=== PATIENT | female | born 2005 | race Caucasian/White ===

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

== ENCOUNTER 2023-02-09 20:00 | Emergency (ER) | payer OTHER ==
[~2023-02-09] VITALS: Ht 154.9 cm; Wt 57.1 kg
[~2023-02-09 20:00] MED LIST changes: +IRON18 MG PO
[2023-02-09 20:39] VITALS: BP 113/65
== END 2023-02-09 23:00 | disposition home or self-care (01) ==
LOC: ER 20:00
DX: S06.9X9A Unspecified intracranial injury with loss of consciousness of unspecified duration, initial encounter (principal); S13.9XXA Sprain of joints and ligaments of unspecified parts of neck, initial encounter; J45.909 Unspecified asthma, uncomplicated; D64.9 Anemia, unspecified; F17.290 Nicotine dependence, other tobacco product, uncomplicated; Z88.0 Allergy status to penicillin; Z88.2 Allergy status to sulfonamides; Z79.899 Other long term (current) drug therapy; W01.198A Fall on same level from slipping, tripping and stumbling with subsequent striking against other object, initial encounter
CPT/HCPCS: 70450; 72125; 99284-25

== ENCOUNTER 2023-02-24 21:50 | Emergency (ER) | payer OTHER ==
[~2023-02-24] VITALS: Ht 157.5 cm; Wt 57.1 kg
[2023-02-24 22:04] VITALS: BP 106/55
[2023-02-24 22:59] LABS: BASOPHILS ABSOLUTE AUTO 0.07 K/mm3 (0.00-0.23); BASOPHILS PERCENT AUTO 1 % (0-2); EOSINOPHILS ABSOLUTE AUTO 0.17 K/mm3 (0.00-0.68); EOSINOPHILS PERCENT AUTO 3 % (0-6); Hematocrit 35.5 % (33.0-51.0); Hemoglobin 12.2 g/dL (11.5-16.0); IMMATURE GRAN ABSOLUTE AUTO 0.02 K/mm3 (0.00-0.10); IMMATURE GRAN PERCENT AUTO 0 % (0-1); LYMPHOCYTES PERCENT AUTO 32 % (21-46); MONOCYTES ABSOLUTE AUTO 0.48 K/mm3 (0.16-1.47); MONOCYTES PERCENT AUTO 8 % (4-13); Mean Corpuscular HGB 31.1 pg (26.0-34.0); Mean Corpuscular HGB Conc 34.4 g/dL (31.5-36.5); Mean Corpuscular Volume 91 fL (80-100); Mean Platelet Volume 9.1 fL (9.1-12.4); NEUTROPHILS ABSOLUTE AUTO 3.57 K/mm3 (1.96-9.15); NEUTROPHILS PERCENT AUTO 57 % (41-73); Platelet Count 298 K/mm3 (150-400); RDW Coefficient Variation 12.8 % (11.7-14.2); RDW Standard Deviation 42.1 fL (35.1-46.3); Red Blood Cell Count 3.92 M/mm3 (3.80-5.20); White Blood Cell Count 6.31 K/mm3 (4.00-11.30)
[2023-02-24 23:11] LABS: Source, Urine Clean Catch
[2023-02-24 23:24] LABS: Appearance, Urine Turbid (Clear); Bilirubin, Urine Neg (Neg); Blood, Urine 5+ (Neg); Color, Urine Yellow (P-Yellow); Glucose Qualitative, Urine Neg (Neg); Ketones, Urine Neg (Neg); Leukocyte Esterase, Urine 3+ (Neg); Nitrite, Urine Neg (Neg); Protein, Urine 2+ (Neg); Specific Gravity, Urine 1.015 (1.003-1.022); Urobilinogen, Urine NORM (Normal)
[2023-02-24 23:47] LABS: Amorphous Mod (0-Heavy); Bacteria Mod /hpf; Squamous Epithelial Cells Mod /hpf (Few)
[2023-02-24 23:49] LABS: White Blood Cells, Urine 25-50 /hpf (0-5)
[2023-02-24 23:53] LABS: Albumin, Blood 4.1 g/dL (3.4-5.0); Albumin/Globulin Ratio 1.3 (0.8-1.8); Bilirubin, Total 0.2 mg/dL (0.1-1.0); Calcium, Blood 9.3 mg/dL (8.5-10.1); Creatinine, Blood 0.53 mg/dL (0.40-1.00); Globulin, Blood 3.1 g/dL (2.2-4.0); Total Protein, Blood 7.2 g/dL (6.4-8.2)
== END 2023-02-25 00:26 | disposition home or self-care (01) ==
LOC: ER 21:50
PROVIDERS: Physician Assistant
DX: O20.9 Hemorrhage in early pregnancy, unspecified (principal); O99.341 Other mental disorders complicating pregnancy, first trimester; F32.A Depression, unspecified; F41.9 Anxiety disorder, unspecified; O99.52 Diseases of the respiratory system complicating childbirth; J45.909 Unspecified asthma, uncomplicated; Z3A.01 Less than 8 weeks gestation of pregnancy; Z88.0 Allergy status to penicillin; Z88.2 Allergy status to sulfonamides; Z79.899 Other long term (current) drug therapy
CPT/HCPCS: 36415; 76801; 76817; 80053; 81001; 84702; 85025; 87077; 87086; 87186; 99284-25

== ENCOUNTER 2023-04-21 13:50 | Emergency (ER) | payer OTHER ==
[~2023-04-21] VITALS: Ht 157.5 cm; Wt 59.0 kg
[2023-04-21 14:52] LABS: BASOPHILS ABSOLUTE AUTO 0.03 K/mm3 (0.00-0.23); BASOPHILS PERCENT AUTO 0 % (0-2); EOSINOPHILS ABSOLUTE AUTO 0.03 K/mm3 (0.00-0.68); EOSINOPHILS PERCENT AUTO 0 % (0-6); IMMATURE GRAN ABSOLUTE AUTO 0.05 K/mm3 (0.00-0.10); IMMATURE GRAN PERCENT AUTO 1 % (0-1); LYMPHOCYTES ABSOLUTE AUTO 1.76 K/mm3 (0.84-5.20); LYMPHOCYTES PERCENT AUTO 25 % (21-46); MONOCYTES ABSOLUTE AUTO 0.57 K/mm3 (0.16-1.47); MONOCYTES PERCENT AUTO 8 % (4-13); Mean Corpuscular HGB 32.6 pg (26.0-34.0); Mean Corpuscular HGB Conc 35.3 g/dL (31.5-36.5); Mean Corpuscular Volume 92 fL (80-100); Mean Platelet Volume 9.7 fL (9.1-12.4); NEUTROPHILS ABSOLUTE AUTO 4.74 K/mm3 (1.96-9.15); NEUTROPHILS PERCENT AUTO 66 % (41-73); Platelet Count 236 K/mm3 (150-400); RDW Coefficient Variation 13.2 % (11.7-14.2); RDW Standard Deviation 44.3 fL (35.1-46.3); Red Blood Cell Count 3.68 M/mm3 (3.80-5.20); White Blood Cell Count 7.18 K/mm3 (4.00-11.30)
[2023-04-21 15:42] LABS: Albumin, Blood 3.5 g/dL (3.4-5.0); Bilirubin, Total 0.2 mg/dL (0.1-1.0); Bun/Creatinine Ratio 15.3 (12.0-20.0); Creatinine, Blood 0.59 mg/dL (0.40-1.00); Globulin, Blood 3.5 g/dL (2.2-4.0); Potassium, Blood 3.7 mmol/L (3.5-5.5)
[2023-04-21 16:47] VITALS: BP 109/69
[2023-04-21 17:01] LABS: Source, Urine Clean Catch
[2023-04-21 17:36] LABS: Appearance, Urine Hazy (Clear); Bilirubin, Urine Neg (Neg); Blood, Urine 1+ (Neg); Color, Urine Yellow (P-Yellow); Glucose Qualitative, Urine Neg (Neg); Ketones, Urine Neg (Neg); Leukocyte Esterase, Urine 1+ (Neg); Nitrite, Urine Pos (Neg); Protein, Urine Neg (Neg); Specific Gravity, Urine 1.025 (1.003-1.022); Urobilinogen, Urine NORM (Normal)
[2023-04-21 18:18] LABS: Bacteria Many /hpf; Squamous Epithelial Cells Few /hpf (Few)
[2023-04-22] MEDS ORDERED: CEPH500 PO (09:43)
== END 2023-04-21 17:02 | disposition home or self-care (01) ==
LOC: ER 13:50
PROVIDERS: Student in an Organized Health Care Education/Training Program
DX: O26.892 Other specified pregnancy related conditions, second trimester (principal); R10.31 Right lower quadrant pain; R10.11 Right upper quadrant pain; O99.332 Smoking (tobacco) complicating pregnancy, second trimester; F17.290 Nicotine dependence, other tobacco product, uncomplicated; Z88.0 Allergy status to penicillin; Z88.1 Allergy status to other antibiotic agents; Z88.2 Allergy status to sulfonamides; Z79.899 Other long term (current) drug therapy; Z3A.15 15 weeks gestation of pregnancy
CPT/HCPCS: 76815; 76857; 80053; 81001; 83690; 84702; 85025; 87077; 87086; 87186; 99284-25

== ENCOUNTER → 2023-05-27 | Outpatient (CLI) | payer OTHER ==
[2023-05-27 17:12] LABS: Source, Urine Clean Catch
[2023-05-27 18:31] LABS: Appearance, Urine Hazy (Clear); Bilirubin, Urine Neg (Neg); Blood, Urine Neg (Neg); Color, Urine Yellow (P-Yellow); Glucose Qualitative, Urine Neg (Neg); Ketones, Urine Neg (Neg); Leukocyte Esterase, Urine 1+ (Neg); Nitrite, Urine Neg (Neg); Protein, Urine 1+ (Neg); Specific Gravity, Urine 1.015 (1.003-1.022); Urobilinogen, Urine NORM (Normal); pH, Urine 6.5 (5.0-8.0)
[2023-05-27 18:42] LABS: Bacteria Many /hpf; Red Blood Cells, Urine 0-2 /hpf (0-2); Squamous Epithelial Cells Few /hpf (Few)
== END | disposition home or self-care (01) ==
LOC: LAB 17:10 → LAB SHORT 17:10
PROVIDERS: Obstetrics & Gynecology
DX: R30.0 Dysuria (principal)
CPT/HCPCS: 81001; 87077; 87086; 87186

== ENCOUNTER 2023-06-05 19:12 | Emergency (ER) | payer OTHER ==
[~2023-06-05] VITALS: Ht 154.9 cm; Wt 59.0 kg
[2023-06-05 19:22] VITALS: BP 105/71
[2023-06-05 19:25] LABS: Source, Urine Clean Catch
[2023-06-05 19:30] LABS: Appearance, Urine Clear (Clear); Bilirubin, Urine Neg (Neg); Blood, Urine Neg (Neg); Color, Urine Yellow (P-Yellow); Glucose Qualitative, Urine Neg (Neg); Ketones, Urine Neg (Neg); Leukocyte Esterase, Urine 1+ (Neg); Nitrite, Urine Neg (Neg); Protein, Urine Neg (Neg); Urobilinogen, Urine 1+ (Normal)
[2023-06-05 19:40] LABS: Bacteria Mod /hpf; Red Blood Cells, Urine 0-2 /hpf (0-2); Squamous Epithelial Cells Few /hpf (Few)
== END 2023-06-05 19:45 | disposition home or self-care (01) ==
LOC: ER 19:12
PROVIDERS: Student in an Organized Health Care Education/Training Program
DX: O46.92 Antepartum hemorrhage, unspecified, second trimester (principal); Z3A.21 21 weeks gestation of pregnancy
CPT/HCPCS: 81001; 81025; 87077; 87086; 87186

== ENCOUNTER → 2023-09-15 | Outpatient (CLI) | payer OTHER ==
[2023-09-15 16:31] LABS: Source, Urine Clean Catch
[2023-09-15 18:59] LABS: Appearance, Urine Hazy (Clear); Bilirubin, Urine Neg (Neg); Blood, Urine 1+ (Neg); Color, Urine Yellow (P-Yellow); Glucose Qualitative, Urine Neg (Neg); Ketones, Urine 1+ (Neg); Leukocyte Esterase, Urine Neg (Neg); Nitrite, Urine Pos (Neg); Protein, Urine 1+ (Neg); Urobilinogen, Urine NORM (Normal)
[2023-09-15 19:09] LABS: Bacteria Many /hpf; Squamous Epithelial Cells Few /hpf (Few)
== END ==
LOC: LAB 16:29 → LAB SHORT 16:29
PROVIDERS: Obstetrics & Gynecology
DX: O23.41 Unspecified infection of urinary tract in pregnancy, first trimester (principal)
CPT/HCPCS: 81001; 87077; 87081; 87086; 87150; 87186

== ENCOUNTER → 2023-11-18 | Outpatient (CLI) | payer OTHER ==
[~2023-11-18] MED LIST changes: +IBUP800 PO
[2023-11-18 12:19] LABS: Source, Urine Clean Catch
[2023-11-18 15:25] LABS: Appearance, Urine Clear (Clear); Bilirubin, Urine Neg (Neg); Blood, Urine Neg (Neg); Color, Urine Yellow (P-Yellow); Glucose Qualitative, Urine Neg (Neg); Ketones, Urine Neg (Neg); Leukocyte Esterase, Urine Neg (Neg); Nitrite, Urine Neg (Neg); Protein, Urine Neg (Neg); Urobilinogen, Urine NORM (Normal)
== END | disposition home or self-care (01) ==
LOC: LAB SHORT 12:17 → LAB 12:17
PROVIDERS: Obstetrics & Gynecology
DX: N12 Tubulo-interstitial nephritis, not specified as acute or chronic (principal)
CPT/HCPCS: 81003

== ENCOUNTER → 2024-07-28 | Outpatient (CLI) | payer OTHER | LOC: LAB 09:39 → LAB SHORT 09:39 | PROVIDERS: Family Medicine | DX: Z01.419 Encounter for gynecological examination (general) (routine) without abnormal findings (principal) | CPT/HCPCS: G0123 ==

== ENCOUNTER 2024-09-19 05:59 | Emergency (ER) | payer OTHER | END 2024-09-19 07:27 | disposition left against medical advice (07) | LOC: ER 05:59 | DX: R42 Dizziness and giddiness (principal); R11.0 Nausea; R51.9 Headache, unspecified; Z53.21 Procedure and treatment not carried out due to patient leaving prior to being seen by health care provider ==

== ENCOUNTER → 2024-12-01 | Outpatient (CLI) | payer OTHER ==
[2024-12-01 13:51] LABS: Source, Urine Clean Catch
[2024-12-01 16:28] LABS: U Amphetamine Screen Not Detected; U Barbituate Screen Not Detected; U Benzodiazapine Screen Not Detected; U Buprenorphine Screen Not Detected; U Cannabinoids Screen DETECTED; U Cocaine Screen Not Detected; U Methadone Screen Not Detected; U Methamphetamine Screen Not Detected; U Opiates Screen Not Detected; U Oxycodone Screen Not Detected; U Phencyclidine Screen Not Detected
[2024-12-01 16:39] LABS: Red Blood Cells, Urine 0-2 /hpf (0-2)
[2024-12-04 06:54] LABS: 11-NOR-9-CARBOXY-THC,URN,QUANT >500 ng/mL
== END | disposition home or self-care (01) ==
LOC: LAB SHORT 13:49 → LAB 13:49
PROVIDERS: Obstetrics & Gynecology
DX: Z34.81 Encounter for supervision of other normal pregnancy, first trimester (principal)
CPT/HCPCS: 81015; 87077; 87086; 87186; G0480

== ENCOUNTER → 2024-12-03 | Outpatient (CLI) | payer OTHER | END | disposition home or self-care (01) | LOC: LAB 09:39 → LAB SHORT 09:39 | DX: N39.0 Urinary tract infection, site not specified (principal) | CPT/HCPCS: 87077; 87086; 87186 ==

== ENCOUNTER 2024-12-19 08:04 | Emergency (ER) | payer OTHER ==
[~2024-12-19] VITALS: Ht 157.5 cm; Wt 58.1 kg
[2024-12-19] MEDS ORDERED: Ondansetron HCl 2 MG / ML 2ML Vial IV ONE (08:55)
[2024-12-19] MEDS ORDERED: NS 1,000 ML IV SCH (08:55)
[2024-12-19] MEDS ORDERED: FentaNYL Citrate 50 MCG/ML 2 ML Injection IV ONE ×2 (09:00→10:10)
[2024-12-19 09:04] LABS: BASOPHILS ABSOLUTE AUTO 0.02 K/mm3 (0.00-0.23); BASOPHILS PERCENT AUTO 0 % (0-2); EOSINOPHILS ABSOLUTE AUTO 0.02 K/mm3 (0.00-0.68); EOSINOPHILS PERCENT AUTO 0 % (0-6); Hematocrit 38.2 % (33.0-51.0); Hemoglobin 13.1 g/dL (11.5-16.0); IMMATURE GRAN ABSOLUTE AUTO 0.03 K/mm3 (0.00-0.10); IMMATURE GRAN PERCENT AUTO 0 % (0-1); LYMPHOCYTES ABSOLUTE AUTO 0.60 K/mm3 (0.84-5.20); LYMPHOCYTES PERCENT AUTO 7 % (21-46); MONOCYTES ABSOLUTE AUTO 0.80 K/mm3 (0.16-1.47); MONOCYTES PERCENT AUTO 10 % (4-13); Mean Corpuscular HGB Conc 34.3 g/dL (31.5-36.5); Mean Corpuscular Volume 93 fL (80-100); NEUTROPHILS ABSOLUTE AUTO 6.68 K/mm3 (1.96-9.15); NEUTROPHILS PERCENT AUTO 82 % (41-73); NRBC ABSOLUTE 0.00 K/mm3 (0.00-0.02); NRBC Auto 0.0 /100 WBC (0.0-0.2); Platelet Count 260 K/mm3 (150-400); RDW Coefficient Variation 12.0 % (11.7-14.2); RDW Standard Deviation 41.2 fL (35.1-46.3)
[2024-12-19] MEDS ORDERED: Keflex250 MG PO (09:15)
[2024-12-19] MEDS ORDERED: REGLAN1013 PO (09:16)
[2024-12-19] MEDS ORDERED: ESCI10 PO (09:16)
[2024-12-19] MEDS ORDERED: Nitrofurantoin100 M1 PO (09:16)
[2024-12-19] MEDS ORDERED: Ondansetron Odt8 MG MM (09:17)
[2024-12-19 09:45] LABS: Alanine Aminotransfer (ALT/SGP 49.0 U/L (12-78); Albumin, Blood 4.6 g/dL (3.4-5.0); Albumin/Globulin Ratio 1.4 (0.8-1.8); Anion Gap 10.0 mmol/L (3-11); Aspartate Aminotrans (AST/SGOT 41.0 U/L (12-37); Beta HCG, Quantitative, Serum 17822.0 mIU/mL (0-3); Bilirubin, Total 0.6 mg/dL (0.1-1.0); Blood Urea Nitrogen 9.0 mg/dL (8-24); CO2, Blood 23.0 mmol/L (21-32); Calcium, Blood 9.5 mg/dL (8.5-10.1); Chloride, Blood 109.0 mmol/L (98-108); Creatinine, Blood 0.68 mg/dL (0.40-1.00); Globulin, Blood 3.4 g/dL (2.2-4.0); Glucose, Blood 109.0 mg/dL (70-99); Potassium, Blood 3.4 mmol/L (3.5-5.5); Sodium, Blood 139.0 mmol/L (136-145); Total Protein, Blood 8.0 g/dL (6.4-8.2)
[2024-12-19] MEDS ORDERED: Metoclopramide HCl 5MG / ML 2ML Vial IV ONE (09:55)
[2024-12-19] MEDS ORDERED: Ketorolac Tromethamine 15mg Vial IV ONE (10:10)
[2024-12-19] MEDS ORDERED: ONDA4ODT MM (11:45)
[2024-12-19] MEDS ORDERED: IBUP800 PO (11:45)
[2024-12-19 11:46] VITALS: BP 111/61
[2024-12-20] MEDS ORDERED: NITR100CA (10:36)
[2024-12-20] MEDS ORDERED: ONDA4ODT MM (12:29)
[2024-12-20] MEDS ORDERED: OXAYDO5 M1 PO (12:29)
== END 2024-12-19 11:58 | disposition home or self-care (01) ==
LOC: ER 08:04
PROVIDERS: Physician Assistant
DX: O03.9 Complete or unspecified spontaneous abortion without complication (principal); J45.909 Unspecified asthma, uncomplicated; Z88.0 Allergy status to penicillin; Z88.2 Allergy status to sulfonamides; Z88.8 Allergy status to other drugs, medicaments and biological substances; Z88.1 Allergy status to other antibiotic agents; Z79.899 Other long term (current) drug therapy
CPT/HCPCS: 76801; 76817; 80053; 84702; 85025; 86900; 86901; 96361; 96374-59; 96375; 96376; 99284-25; A9270; J2405; J2765; J3010; J7030

== ENCOUNTER 2024-12-20 10:17 | Emergency (ER) | payer OTHER ==
[~2024-12-20] VITALS: Ht 167.6 cm; Wt 61.2 kg
[~2024-12-20 10:17] MED LIST changes: +ESCI10 PO; +Keflex250 MG PO; +Ondansetron Odt8 MG MM; +REGLAN1013 PO
[2024-12-20 10:27] VITALS: BP 120/86
[2024-12-20] MEDS ORDERED: NITR100CA (10:36)
[2024-12-20] MEDS ORDERED: Ketorolac Tromethamine 15mg Vial IV ONE (10:40)
[2024-12-20] MEDS ORDERED: Ondansetron HCl 2 MG / ML 2ML Vial IV ONE (10:40)
[2024-12-20] MEDS ORDERED: Morphine Sulfate 4 MG/1 ML Injection IV ONE (10:40)
[2024-12-20 11:15] LABS: BASOPHILS ABSOLUTE AUTO 0.02 K/mm3 (0.00-0.23); BASOPHILS PERCENT AUTO 0 % (0-2); EOSINOPHILS ABSOLUTE AUTO 0.02 K/mm3 (0.00-0.68); EOSINOPHILS PERCENT AUTO 0 % (0-6); Hematocrit 35.8 % (33.0-51.0); Hemoglobin 12.4 g/dL (11.5-16.0); IMMATURE GRAN ABSOLUTE AUTO 0.02 K/mm3 (0.00-0.10); IMMATURE GRAN PERCENT AUTO 0 % (0-1); LYMPHOCYTES ABSOLUTE AUTO 1.13 K/mm3 (0.84-5.20); LYMPHOCYTES PERCENT AUTO 24 % (21-46); MONOCYTES ABSOLUTE AUTO 0.45 K/mm3 (0.16-1.47); MONOCYTES PERCENT AUTO 9 % (4-13); Mean Corpuscular HGB Conc 34.6 g/dL (31.5-36.5); Mean Corpuscular Volume 93 fL (80-100); NEUTROPHILS ABSOLUTE AUTO 3.14 K/mm3 (1.96-9.15); NEUTROPHILS PERCENT AUTO 66 % (41-73); NRBC ABSOLUTE 0.00 K/mm3 (0.00-0.02); NRBC Auto 0.0 /100 WBC (0.0-0.2); Platelet Count 247 K/mm3 (150-400); RDW Coefficient Variation 12.4 % (11.7-14.2); RDW Standard Deviation 42.1 fL (35.1-46.3)
[2024-12-20 11:17] LABS: Source, Urine Clean Catch
[2024-12-20 11:28] LABS: Bilirubin, Urine Neg (Neg); Glucose Qualitative, Urine Neg (Neg); Ketones, Urine 3+ (Neg); Leukocyte Esterase, Urine 2+ (Neg); Protein, Urine Neg (Neg); Specific Gravity, Urine 1.010 (1.003-1.022); Urobilinogen, Urine NORM (Normal)
[2024-12-20 11:38] LABS: Color, Urine Pale Yellow (P-Yellow)
[2024-12-20] MEDS ORDERED: DiphenhydrAMINE HCl 50 MG/ML 1ML Vial IV ONE (11:55)
[2024-12-20 12:17] LABS: Alanine Aminotransfer (ALT/SGP 52.0 U/L (12-78); Albumin, Blood 4.2 g/dL (3.4-5.0); Albumin/Globulin Ratio 1.2 (0.8-1.8); Anion Gap 8.0 mmol/L (3-11); Aspartate Aminotrans (AST/SGOT 40.0 U/L (12-37); Beta HCG, Quantitative, Serum 15863.0 mIU/mL (0-3); Bilirubin, Total 0.6 mg/dL (0.1-1.0); Blood Urea Nitrogen 5.0 mg/dL (8-24); CO2, Blood 19.0 mmol/L (21-32); Calcium, Blood 9.4 mg/dL (8.5-10.1); Chloride, Blood 111.0 mmol/L (98-108); Creatinine, Blood 0.62 mg/dL (0.40-1.00); Globulin, Blood 3.6 g/dL (2.2-4.0); Glucose, Blood 101.0 mg/dL (70-99); Potassium, Blood 3.6 mmol/L (3.5-5.5); Sodium, Blood 134.0 mmol/L (136-145); Total Protein, Blood 7.8 g/dL (6.4-8.2)
[2024-12-20] MEDS ORDERED: ONDA4ODT MM (12:29)
[2024-12-20] MEDS ORDERED: OXAYDO5 M1 PO (12:29)
== END 2024-12-20 12:33 | disposition home or self-care (01) ==
LOC: ER 10:17
PROVIDERS: Student in an Organized Health Care Education/Training Program
DX: O03.4 Incomplete spontaneous abortion without complication (principal); R11.2 Nausea with vomiting, unspecified; J45.909 Unspecified asthma, uncomplicated; Z88.0 Allergy status to penicillin; Z88.2 Allergy status to sulfonamides; Z88.1 Allergy status to other antibiotic agents; Z88.8 Allergy status to other drugs, medicaments and biological substances
CPT/HCPCS: 80053; 81001; 84702; 85025; 87086; 96361; 96374; 96375; 99284-25; A9270; J1200; J1885; J2270; J2405; J7120

== ENCOUNTER 2024-12-21 07:22 | Day surgery (SDC) | payer OTHER ==
[~2024-12-21] VITALS: Ht 157.5 cm; Wt 56.7 kg
[~2024-12-21 07:22] MED LIST changes: +NITR100CA; +OXAYDO5 M1 PO
[2024-12-21] MEDS ORDERED: Doxycycline Hyclate 200 MG in Dextrose 5% 500 ML IV ONE (07:50)
[2024-12-21] MEDS ORDERED: Midazolam HCl 1MG / ML 2ML Vial ONE ×2 (08:27→09:12)
[2024-12-21] MEDS ORDERED: FentaNYL Citrate 50 MCG/ML 2 ML Injection ONE ×2 (09:13→10:11)
[2024-12-21] MEDS ORDERED: Ondansetron HCl 2 MG / ML 2ML Vial ONE ×2 (09:21→10:23)
[2024-12-21] MEDS ORDERED: Metoclopramide HCl 5MG / ML 2ML Vial ONE (09:21)
[2024-12-21] MEDS ORDERED: Dexamethasone Sod Phos 10 MG/ML 1ML VIAL ONE (09:21)
[2024-12-21] MEDS ORDERED: Ketorolac Tromethamine 30mg Vial ONE (09:38)
--- NOTE | 2024-12-21 10:00 | NUR ---
12/21/[address] AT BEDSIDE. VERBAL ORDER FOR PO DOXYCYCLINE 200 MG ONCE PATIENT IS TOLERATING PO FLUIDS AND SNACKS
--- NOTE | 2024-12-21 10:17 | NUR ---
12/21/24 1017 [address] FAMILY AT BEDSIDE UPON ARRIVAL TO STEP DOWN. EMO SPOKE WITH FAMILY AND PATIENT
[2024-12-21 11:03] VITALS: BP 106/68
== END 2024-12-21 11:37 | disposition home or self-care (01) ==
LOC: ORSCSDS 07:22
PROVIDERS: Obstetrics & Gynecology
PROC: 10D18ZZ Extraction of Products of Conception, Retained, Via Natural or Artificial Opening Endoscopic (ICD-10-PCS; principal; 2024-12-21 08:45)
DX: O02.1 Missed abortion (principal); F41.8 Other specified anxiety disorders; J45.909 Unspecified asthma, uncomplicated; Z79.899 Other long term (current) drug therapy; F17.210 Nicotine dependence, cigarettes, uncomplicated
CPT/HCPCS: 76998; 88305; A9270; J1100; J1885; J2250; J2405; J2704; J2765; J3010; J7060; J7120

== ENCOUNTER 2024-12-25 08:29 | Emergency (ER) | payer OTHER ==
[~2024-12-25] VITALS: Ht 160 cm; Wt 49.9 kg
[2024-12-25] MEDS ORDERED: Midazolam HCL 1 MG/ML 5MLVIAL IV ONE ×2 (09:05→13:05)
[2024-12-25] MEDS ORDERED: Ondansetron HCl 2 MG / ML 2ML Vial IV ONE (09:05)
[2024-12-25] MEDS ORDERED: Ketorolac Tromethamine 15mg Vial IV ONE ×2 (09:05→10:20)
[2024-12-25 09:24] LABS: BASOPHILS ABSOLUTE AUTO 0.04 K/mm3 (0.00-0.23); BASOPHILS PERCENT AUTO 1 % (0-2); EOSINOPHILS ABSOLUTE AUTO 0.02 K/mm3 (0.00-0.68); EOSINOPHILS PERCENT AUTO 0 % (0-6); Hematocrit 36.5 % (33.0-51.0); Hemoglobin 13.1 g/dL (11.5-16.0); IMMATURE GRAN ABSOLUTE AUTO 0.03 K/mm3 (0.00-0.10); IMMATURE GRAN PERCENT AUTO 0 % (0-1); LYMPHOCYTES ABSOLUTE AUTO 1.80 K/mm3 (0.84-5.20); LYMPHOCYTES PERCENT AUTO 24 % (21-46); MONOCYTES ABSOLUTE AUTO 0.66 K/mm3 (0.16-1.47); MONOCYTES PERCENT AUTO 9 % (4-13); Mean Corpuscular HGB Conc 35.9 g/dL (31.5-36.5); Mean Corpuscular Volume 91 fL (80-100); NEUTROPHILS ABSOLUTE AUTO 4.98 K/mm3 (1.96-9.15); NEUTROPHILS PERCENT AUTO 66 % (41-73); NRBC ABSOLUTE 0.00 K/mm3 (0.00-0.02); NRBC Auto 0.0 /100 WBC (0.0-0.2); Platelet Count 352 K/mm3 (150-400); RDW Coefficient Variation 11.9 % (11.7-14.2); RDW Standard Deviation 39.6 fL (35.1-46.3)
[2024-12-25 10:12] LABS: Alanine Aminotransfer (ALT/SGP 28.0 U/L (12-78); Albumin, Blood 4.4 g/dL (3.4-5.0); Albumin/Globulin Ratio 1.3 (0.8-1.8); Anion Gap 11.0 mmol/L (3-11); Aspartate Aminotrans (AST/SGOT 16.0 U/L (12-37); Beta HCG, Quantitative, Serum 1038.0 mIU/mL (0-3); Bilirubin, Total 0.7 mg/dL (0.1-1.0); Blood Urea Nitrogen 7.0 mg/dL (8-24); CO2, Blood 22.0 mmol/L (21-32); Calcium, Blood 9.2 mg/dL (8.5-10.1); Chloride, Blood 110.0 mmol/L (98-108); Creatinine, Blood 0.82 mg/dL (0.40-1.00); Globulin, Blood 3.4 g/dL (2.2-4.0); Glucose, Blood 125.0 mg/dL (70-99); Potassium, Blood 2.9 mmol/L (3.5-5.5); Sodium, Blood 140.0 mmol/L (136-145); Total Protein, Blood 7.8 g/dL (6.4-8.2)
[2024-12-25] MEDS ORDERED: Metoclopramide HCl 5MG / ML 2ML Vial IV ONE (10:20)
[2024-12-25] MEDS ORDERED: Midazolam HCl 1MG / ML 2ML Vial IV ONE (10:25)
[2024-12-25] MEDS ORDERED: NS 1,000 ML IV SCH (11:00)
[2024-12-25] MEDS ORDERED: Haloperidol Lactate Inj. 5 MG/ML Injection IV ONE (11:55)
[2024-12-25] MEDS ORDERED: DiphenhydrAMINE HCl 50 MG/ML 1ML Vial IV ONE (13:05)
[2024-12-25 14:07] VITALS: BP 100/68
[2024-12-25] MEDS ORDERED: K-TAB ER20 MEQ PO (14:12)
== END 2024-12-25 14:14 | disposition home or self-care (01) ==
LOC: ER 08:29
PROVIDERS: Physician Assistant
DX: R10.32 Left lower quadrant pain (principal); R11.2 Nausea with vomiting, unspecified; Z88.0 Allergy status to penicillin; Z88.2 Allergy status to sulfonamides; Z88.8 Allergy status to other drugs, medicaments and biological substances; Z79.899 Other long term (current) drug therapy; Z59.89 Other problems related to housing and economic circumstances
CPT/HCPCS: 76856; 80053; 84702; 85025; 93005; 93010; 96361; 96374; 96375; 96376; 99284-25; A9270; J1200; J1630; J1885; J2250; J2405; J2765; J7030

== ENCOUNTER 2025-01-18 10:17 | Emergency (ER) | payer OTHER ==
[~2025-01-18] VITALS: Ht 157.5 cm; Wt 57.1 kg
[~2025-01-18 10:17] MED LIST changes: +K-TAB ER20 MEQ PO
[2025-01-18] MEDS ORDERED: Ondansetron HCl 2 MG / ML 2ML Vial IV ONE (10:50)
[2025-01-18] MEDS ORDERED: NS 1,000 ML IV SCH (10:50)
[2025-01-18 11:16] LABS: Source, Urine Clean Catch
[2025-01-18 11:24] LABS: Bilirubin, Urine Neg (Neg); Glucose Qualitative, Urine Neg (Neg); Ketones, Urine Neg (Neg); Leukocyte Esterase, Urine 3+ (Neg); Protein, Urine Neg (Neg); Specific Gravity, Urine 1.010 (1.003-1.022); Urobilinogen, Urine NORM (Normal)
[2025-01-18 11:34] LABS: BASOPHILS ABSOLUTE AUTO 0.03 K/mm3 (0.00-0.23); BASOPHILS PERCENT AUTO 1 % (0-2); EOSINOPHILS ABSOLUTE AUTO 0.01 K/mm3 (0.00-0.68); EOSINOPHILS PERCENT AUTO 0 % (0-6); Hematocrit 38.8 % (33.0-51.0); Hemoglobin 13.6 g/dL (11.5-16.0); IMMATURE GRAN ABSOLUTE AUTO 0.03 K/mm3 (0.00-0.10); IMMATURE GRAN PERCENT AUTO 1 % (0-1); LYMPHOCYTES ABSOLUTE AUTO 0.66 K/mm3 (0.84-5.20); LYMPHOCYTES PERCENT AUTO 11 % (21-46); MONOCYTES ABSOLUTE AUTO 0.43 K/mm3 (0.16-1.47); MONOCYTES PERCENT AUTO 7 % (4-13); Mean Corpuscular HGB Conc 35.1 g/dL (31.5-36.5); Mean Corpuscular Volume 92 fL (80-100); NEUTROPHILS ABSOLUTE AUTO 4.63 K/mm3 (1.96-9.15); NEUTROPHILS PERCENT AUTO 80 % (41-73); NRBC ABSOLUTE 0.00 K/mm3 (0.00-0.02); NRBC Auto 0.0 /100 WBC (0.0-0.2); Platelet Count 286 K/mm3 (150-400); RDW Coefficient Variation 12.0 % (11.7-14.2); RDW Standard Deviation 40.5 fL (35.1-46.3)
[2025-01-18 11:38] LABS: Color, Urine Pale Yellow (P-Yellow)
[2025-01-18 11:41] LABS: Red Blood Cells, Urine 0-2 /hpf (0-2)
[2025-01-18 12:13] LABS: Alanine Aminotransfer (ALT/SGP 28.0 U/L (12-78); Albumin, Blood 4.6 g/dL (3.4-5.0); Albumin/Globulin Ratio 1.4 (0.8-1.8); Anion Gap 13.0 mmol/L (3-11); Aspartate Aminotrans (AST/SGOT 23.0 U/L (12-37); Beta HCG, Quantitative, Serum 4.0 mIU/mL (0-3); Bilirubin, Total 0.7 mg/dL (0.1-1.0); Blood Urea Nitrogen 6.0 mg/dL (8-24); CO2, Blood 21.0 mmol/L (21-32); Calcium, Blood 9.4 mg/dL (8.5-10.1); Chloride, Blood 107.0 mmol/L (98-108); Creatinine, Blood 0.71 mg/dL (0.40-1.00); Globulin, Blood 3.3 g/dL (2.2-4.0); Glucose, Blood 102.0 mg/dL (70-99); Potassium, Blood 3.4 mmol/L (3.5-5.5); Sodium, Blood 138.0 mmol/L (136-145); Total Protein, Blood 7.9 g/dL (6.4-8.2)
[2025-01-18] MEDS ORDERED: Metoclopramide HCl 5MG / ML 2ML Vial IV ONE (13:45)
[2025-01-18 14:00] VITALS: BP 116/65
[2025-01-18] MEDS ORDERED: CEPH500 PO (14:02)
== END 2025-01-18 14:32 | disposition home or self-care (01) ==
LOC: ER 10:17
PROVIDERS: Emergency Medicine
DX: N12 Tubulo-interstitial nephritis, not specified as acute or chronic (principal); R10.9 Unspecified abdominal pain; J45.909 Unspecified asthma, uncomplicated; Z79.899 Other long term (current) drug therapy; Z79.2 Long term (current) use of antibiotics; Z88.0 Allergy status to penicillin; Z88.1 Allergy status to other antibiotic agents; Z88.2 Allergy status to sulfonamides; Z88.8 Allergy status to other drugs, medicaments and biological substances; N39.0 Urinary tract infection, site not specified
CPT/HCPCS: 74177; 76856; 80053; 81001; 84702; 85025; 87077; 87086; 87186; 96361; 96365-59; 99283; 99284-25; A9270; J1956; J2405; J2765; J7030; Q9967

== ENCOUNTER 2025-01-18 22:43 | Emergency (ER) | payer OTHER ==
[~2025-01-18] VITALS: Ht 157.5 cm; Wt 57.1 kg
[2025-01-18 22:48] VITALS: BP 105/72
[2025-01-18] MEDS ORDERED: RX Prepack 6 Tabs Oxycodone 5mg UD ONE (22:55)
== END 2025-01-18 22:58 | disposition home or self-care (01) ==
LOC: ER 22:43
DX: R10.9 Unspecified abdominal pain (principal); J45.909 Unspecified asthma, uncomplicated; Z88.0 Allergy status to penicillin; Z88.2 Allergy status to sulfonamides; Z88.8 Allergy status to other drugs, medicaments and biological substances; Z79.2 Long term (current) use of antibiotics; Z79.899 Other long term (current) drug therapy
CPT/HCPCS: 99283; A9270

== ENCOUNTER 2025-01-20 20:57 | Emergency (ER) | payer OTHER ==
[~2025-01-20] VITALS: Ht 157.5 cm; Wt 54.9 kg
[2025-01-20] MEDS ORDERED: Ketorolac Tromethamine 30mg Vial IM ONE (21:30)
[2025-01-20 22:01] LABS: BASOPHILS ABSOLUTE AUTO 0.04 K/mm3 (0.00-0.23); BASOPHILS PERCENT AUTO 1 % (0-2); EOSINOPHILS ABSOLUTE AUTO 0.03 K/mm3 (0.00-0.68); EOSINOPHILS PERCENT AUTO 1 % (0-6); Hematocrit 38.7 % (33.0-51.0); Hemoglobin 13.3 g/dL (11.5-16.0); IMMATURE GRAN ABSOLUTE AUTO 0.03 K/mm3 (0.00-0.10); IMMATURE GRAN PERCENT AUTO 1 % (0-1); LYMPHOCYTES ABSOLUTE AUTO 1.73 K/mm3 (0.84-5.20); LYMPHOCYTES PERCENT AUTO 41 % (21-46); MONOCYTES ABSOLUTE AUTO 0.41 K/mm3 (0.16-1.47); MONOCYTES PERCENT AUTO 10 % (4-13); Mean Corpuscular HGB Conc 34.4 g/dL (31.5-36.5); Mean Corpuscular Volume 93 fL (80-100); NEUTROPHILS ABSOLUTE AUTO 2.00 K/mm3 (1.96-9.15); NEUTROPHILS PERCENT AUTO 47 % (41-73); NRBC ABSOLUTE 0.00 K/mm3 (0.00-0.02); NRBC Auto 0.0 /100 WBC (0.0-0.2); Platelet Count 253 K/mm3 (150-400); RDW Coefficient Variation 12.2 % (11.7-14.2); RDW Standard Deviation 42.4 fL (35.1-46.3)
[2025-01-20 22:16] LABS: Source, Urine Clean Catch
[2025-01-20 22:19] LABS: Alanine Aminotransfer (ALT/SGP 22.0 U/L (12-78); Albumin, Blood 4.8 g/dL (3.4-5.0); Albumin/Globulin Ratio 1.5 (0.8-1.8); Anion Gap 10.0 mmol/L (3-11); Aspartate Aminotrans (AST/SGOT 16.0 U/L (12-37); Bilirubin, Total 1.2 mg/dL (0.1-1.0); Blood Urea Nitrogen 13.0 mg/dL (8-24); CO2, Blood 24.0 mmol/L (21-32); Calcium, Blood 9.6 mg/dL (8.5-10.1); Chloride, Blood 108.0 mmol/L (98-108); Creatinine, Blood 0.94 mg/dL (0.40-1.00); Globulin, Blood 3.2 g/dL (2.2-4.0); Glucose, Blood 82.0 mg/dL (70-99); Magnesium, Blood 1.9 mg/dL (1.6-2.4); Potassium, Blood 3.3 mmol/L (3.5-5.5); Sodium, Blood 139.0 mmol/L (136-145); Total Protein, Blood 8.0 g/dL (6.4-8.2)
[2025-01-20 22:21] LABS: Bilirubin, Urine Neg (Neg); Glucose Qualitative, Urine Neg (Neg); Ketones, Urine 2+ (Neg); Leukocyte Esterase, Urine 3+ (Neg); Protein, Urine 2+ (Neg); Specific Gravity, Urine 1.025 (1.003-1.022); Urobilinogen, Urine 1+ (Normal)
[2025-01-20 22:31] LABS: Color, Urine Yellow (P-Yellow)
[2025-01-20 22:32] LABS: Red Blood Cells, Urine Not Seen /hpf (0-2); White Blood Cells, Urine 50-100 /hpf (0-5)
[2025-01-20 23:09] VITALS: BP 114/78
[2025-01-20] MEDS ORDERED: CEFD300 PO (23:15)
[2025-01-20] MEDS ORDERED: CefTRIAXone 1000 MG Vial IM ONE (23:15)
[2025-01-20] MEDS ORDERED: IBUP400 PO (23:15)
[2025-01-20] MEDS ORDERED: DICY20 PO (23:15)
[2025-01-20] MEDS ORDERED: Pyridium100 MG PO (23:15)
== END 2025-01-20 23:50 | disposition home or self-care (01) ==
LOC: ER 20:57
PROVIDERS: Emergency Medicine
DX: N39.0 Urinary tract infection, site not specified (principal); Z88.0 Allergy status to penicillin; Z88.2 Allergy status to sulfonamides; Z79.899 Other long term (current) drug therapy; Z79.2 Long term (current) use of antibiotics; J45.909 Unspecified asthma, uncomplicated
CPT/HCPCS: 36415; 80053; 81001; 81025; 83605; 83735; 85025; 87086; 96372; 99284-25; J0500; J0696; J1885

== ENCOUNTER 2025-01-30 07:45 | Emergency (ER) | payer OTHER ==
[~2025-01-30] VITALS: Ht 157.5 cm; Wt 56.7 kg
[~2025-01-30 07:45] MED LIST changes: +CEFD300 PO; +DICY20 PO; +IBUP400 PO; +Pyridium100 MG PO
[2025-01-30 07:55] VITALS: BP 120/69
[2025-01-30] MEDS ORDERED: NS 1,000 ML IV SCH (08:20)
[2025-01-30] MEDS ORDERED: Ondansetron HCl 2 MG / ML 2ML Vial IV ONE (08:25)
[2025-01-30] MEDS ORDERED: Ketorolac Tromethamine 15mg Vial IV ONE (08:25)
[2025-01-30 08:41] LABS: Source, Urine Clean Catch
[2025-01-30 08:47] LABS: Bilirubin, Urine Neg (Neg); Glucose Qualitative, Urine Neg (Neg); Ketones, Urine Neg (Neg); Leukocyte Esterase, Urine 2+ (Neg); Protein, Urine Neg (Neg); Specific Gravity, Urine 1.005 (1.003-1.022); Urobilinogen, Urine NORM (Normal)
[2025-01-30 08:49] LABS: BASOPHILS ABSOLUTE AUTO 0.04 K/mm3 (0.00-0.23); BASOPHILS PERCENT AUTO 1 % (0-2); EOSINOPHILS ABSOLUTE AUTO 0.15 K/mm3 (0.00-0.68); EOSINOPHILS PERCENT AUTO 4 % (0-6); Hematocrit 37.6 % (33.0-51.0); Hemoglobin 12.8 g/dL (11.5-16.0); IMMATURE GRAN ABSOLUTE AUTO 0.02 K/mm3 (0.00-0.10); IMMATURE GRAN PERCENT AUTO 1 % (0-1); LYMPHOCYTES ABSOLUTE AUTO 1.07 K/mm3 (0.84-5.20); LYMPHOCYTES PERCENT AUTO 28 % (21-46); MONOCYTES ABSOLUTE AUTO 0.43 K/mm3 (0.16-1.47); MONOCYTES PERCENT AUTO 11 % (4-13); Mean Corpuscular HGB Conc 34.0 g/dL (31.5-36.5); Mean Corpuscular Volume 95 fL (80-100); NEUTROPHILS ABSOLUTE AUTO 2.15 K/mm3 (1.96-9.15); NEUTROPHILS PERCENT AUTO 56 % (41-73); NRBC ABSOLUTE 0.00 K/mm3 (0.00-0.02); NRBC Auto 0.0 /100 WBC (0.0-0.2); Platelet Count 240 K/mm3 (150-400); RDW Coefficient Variation 12.2 % (11.7-14.2); RDW Standard Deviation 42.5 fL (35.1-46.3)
[2025-01-30 08:51] LABS: Color, Urine Pale Yellow (P-Yellow)
[2025-01-30 09:02] LABS: Red Blood Cells, Urine Not Seen /hpf (0-2)
[2025-01-30 09:12] LABS: Beta HCG, Quantitative, Serum 1.0 mIU/mL (0-3)
[2025-01-30 09:13] LABS: Alanine Aminotransfer (ALT/SGP 21.0 U/L (12-78); Albumin, Blood 4.3 g/dL (3.4-5.0); Albumin/Globulin Ratio 1.5 (0.8-1.8); Anion Gap 12.0 mmol/L (3-11); Aspartate Aminotrans (AST/SGOT 17.0 U/L (12-37); Bilirubin, Total 0.3 mg/dL (0.1-1.0); Blood Urea Nitrogen 6.0 mg/dL (8-24); CO2, Blood 20.0 mmol/L (21-32); Calcium, Blood 9.1 mg/dL (8.5-10.1); Chloride, Blood 109.0 mmol/L (98-108); Creatinine, Blood 0.83 mg/dL (0.40-1.00); Globulin, Blood 2.9 g/dL (2.2-4.0); Glucose, Blood 99.0 mg/dL (70-99); Potassium, Blood 3.4 mmol/L (3.5-5.5); Sodium, Blood 138.0 mmol/L (136-145); Total Protein, Blood 7.2 g/dL (6.4-8.2)
[2025-01-30] MEDS ORDERED: Haloperidol Lactate Inj. 5 MG/ML Injection IV ONE (09:25)
[2025-01-30] MEDS ORDERED: DiphenhydrAMINE HCl 50 MG/ML 1ML Vial IV ONE (09:25)
[2025-01-30] MEDS ORDERED: Percocet 5-3251 EACH PO (10:17)
== END 2025-01-30 10:19 | disposition home or self-care (01) ==
LOC: ER 07:45
PROVIDERS: Student in an Organized Health Care Education/Training Program
DX: R11.2 Nausea with vomiting, unspecified (principal); N39.0 Urinary tract infection, site not specified; Z88.0 Allergy status to penicillin; Z88.2 Allergy status to sulfonamides; Z88.8 Allergy status to other drugs, medicaments and biological substances
CPT/HCPCS: 76856; 80053; 81001; 83690; 84702; 85025; 87086; 96361; 96374; 96375; 99284-25; J1200; J1630; J1885; J2405; J7030

== ENCOUNTER 2025-02-12 23:42 | Emergency (ER) | payer OTHER ==
[~2025-02-12] VITALS: Ht 157.5 cm; Wt 52.6 kg
[2025-02-13 00:25] LABS: BASOPHILS ABSOLUTE AUTO 0.02 K/mm3 (0.00-0.23); BASOPHILS PERCENT AUTO 0 % (0-2); EOSINOPHILS ABSOLUTE AUTO 0.00 K/mm3 (0.00-0.68); EOSINOPHILS PERCENT AUTO 0 % (0-6); Hematocrit 31.3 % (33.0-51.0); Hemoglobin 11.3 g/dL (11.5-16.0); IMMATURE GRAN ABSOLUTE AUTO 0.03 K/mm3 (0.00-0.10); IMMATURE GRAN PERCENT AUTO 1 % (0-1); LYMPHOCYTES ABSOLUTE AUTO 1.57 K/mm3 (0.84-5.20); LYMPHOCYTES PERCENT AUTO 27 % (21-46); MONOCYTES ABSOLUTE AUTO 0.42 K/mm3 (0.16-1.47); MONOCYTES PERCENT AUTO 7 % (4-13); Mean Corpuscular HGB Conc 36.1 g/dL (31.5-36.5); Mean Corpuscular Volume 92 fL (80-100); NEUTROPHILS ABSOLUTE AUTO 3.75 K/mm3 (1.96-9.15); NEUTROPHILS PERCENT AUTO 65 % (41-73); NRBC ABSOLUTE 0.00 K/mm3 (0.00-0.02); NRBC Auto 0.0 /100 WBC (0.0-0.2); Platelet Count 272 K/mm3 (150-400); RDW Coefficient Variation 12.6 % (11.7-14.2); RDW Standard Deviation 42.2 fL (35.1-46.3)
[2025-02-13 00:48] LABS: Alanine Aminotransfer (ALT/SGP 24.0 U/L (12-78); Albumin, Blood 4.5 g/dL (3.4-5.0); Albumin/Globulin Ratio 1.7 (0.8-1.8); Anion Gap 12.0 mmol/L (3-11); Aspartate Aminotrans (AST/SGOT 30.0 U/L (12-37); Bilirubin, Total 0.9 mg/dL (0.1-1.0); Blood Urea Nitrogen 8.0 mg/dL (8-24); CO2, Blood 19.0 mmol/L (21-32); Calcium, Blood 9.0 mg/dL (8.5-10.1); Chloride, Blood 113.0 mmol/L (98-108); Creatinine, Blood 0.72 mg/dL (0.40-1.00); Globulin, Blood 2.7 g/dL (2.2-4.0); Glucose, Blood 95.0 mg/dL (70-99); Potassium, Blood 3.1 mmol/L (3.5-5.5); Sodium, Blood 141.0 mmol/L (136-145); Total Protein, Blood 7.2 g/dL (6.4-8.2)
[2025-02-13 01:27] LABS: Source, Urine Clean Catch
[2025-02-13 01:31] LABS: Bilirubin, Urine Neg (Neg); Glucose Qualitative, Urine Neg (Neg); Ketones, Urine 4+ (Neg); Leukocyte Esterase, Urine Neg (Neg); Protein, Urine 1+ (Neg); Specific Gravity, Urine 1.010 (1.003-1.022); Urobilinogen, Urine 1+ (Normal)
[2025-02-13 01:40] LABS: Color, Urine Yellow (P-Yellow)
[2025-02-13 01:48] LABS: U Amphetamine Screen Not Detected; U Barbituate Screen Not Detected; U Benzodiazapine Screen Not Detected; U Buprenorphine Screen Not Detected; U Cannabinoids Screen DETECTED; U Cocaine Screen Not Detected; U Methadone Screen Not Detected; U Methamphetamine Screen Not Detected; U Opiates Screen Not Detected; U Oxycodone Screen Not Detected; U Phencyclidine Screen Not Detected
[2025-02-13] MEDS ORDERED: NS 1,000 ML IV SCH ×2 (03:05→04:40)
[2025-02-13] MEDS ORDERED: Ondansetron HCl 2 MG / ML 2ML Vial IV ONE (03:10)
[2025-02-13] MEDS ORDERED: Potassium Chl 20MEQ/Water100ML 100 ML IV SCH (03:55)
[2025-02-13] MEDS ORDERED: DiphenhydrAMINE HCl 50 MG/ML 1ML Vial IV ONE (03:55)
[2025-02-13] MEDS ORDERED: Prochlorperazine Edisylate 10 mg Vial IV ONE (03:55)
[2025-02-13] MEDS ORDERED: Diazepam 5 MG / ML 2ML SYR IV ONE (04:55)
[2025-02-13 05:10] LABS: Magnesium, Blood 1.6 mg/dL (1.6-2.4)
[2025-02-13 06:00] VITALS: BP 103/63
== END 2025-02-13 06:22 | disposition home or self-care (01) ==
LOC: ER 23:42
PROVIDERS: Emergency Medicine
DX: E87.6 Hypokalemia (principal); E86.0 Dehydration; R11.2 Nausea with vomiting, unspecified; R11.10 Vomiting, unspecified; Z88.0 Allergy status to penicillin; Z88.2 Allergy status to sulfonamides; Z88.8 Allergy status to other drugs, medicaments and biological substances; Z88.1 Allergy status to other antibiotic agents; Z59.89 Other problems related to housing and economic circumstances
CPT/HCPCS: 80053; 81025; 83735; 85025; 96365; 96366; 96375; 99284-25; A9270; J0780; J1200; J2405; J3360; J3480; J7030

== ENCOUNTER → 2025-02-12 | Outpatient (CLI) | payer OTHER ==
[~2025-02-12] MED LIST changes: +Percocet 5-3251 EACH PO
[2025-02-12 15:57] LABS: BASOPHILS ABSOLUTE AUTO 0.03 K/mm3 (0.00-0.23); BASOPHILS PERCENT AUTO 0 % (0-2); EOSINOPHILS ABSOLUTE AUTO 0.01 K/mm3 (0.00-0.68); EOSINOPHILS PERCENT AUTO 0 % (0-6); Hematocrit 35.3 % (33.0-51.0); Hemoglobin 12.6 g/dL (11.5-16.0); IMMATURE GRAN ABSOLUTE AUTO 0.03 K/mm3 (0.00-0.10); IMMATURE GRAN PERCENT AUTO 0 % (0-1); LYMPHOCYTES ABSOLUTE AUTO 1.17 K/mm3 (0.84-5.20); LYMPHOCYTES PERCENT AUTO 15 % (21-46); MONOCYTES ABSOLUTE AUTO 0.53 K/mm3 (0.16-1.47); MONOCYTES PERCENT AUTO 7 % (4-13); Mean Corpuscular HGB Conc 35.7 g/dL (31.5-36.5); Mean Corpuscular Volume 90 fL (80-100); NEUTROPHILS ABSOLUTE AUTO 6.14 K/mm3 (1.96-9.15); NEUTROPHILS PERCENT AUTO 78 % (41-73); NRBC ABSOLUTE 0.00 K/mm3 (0.00-0.02); NRBC Auto 0.0 /100 WBC (0.0-0.2); Platelet Count 291 K/mm3 (150-400); RDW Coefficient Variation 12.6 % (11.7-14.2); RDW Standard Deviation 41.1 fL (35.1-46.3)
[2025-02-12 16:09] LABS: Alanine Aminotransfer (ALT/SGP 24.0 U/L (12-78); Albumin, Blood 4.9 g/dL (3.4-5.0); Albumin/Globulin Ratio 1.7 (0.8-1.8); Anion Gap 20.0 mmol/L (3-11); Aspartate Aminotrans (AST/SGOT 31.0 U/L (12-37); Bilirubin, Total 0.7 mg/dL (0.1-1.0); Blood Urea Nitrogen 8.0 mg/dL (8-24); CO2, Blood 20.0 mmol/L (21-32); Calcium, Blood 9.8 mg/dL (8.5-10.1); Chloride, Blood 110.0 mmol/L (98-108); Creatinine, Blood 0.91 mg/dL (0.40-1.00); Globulin, Blood 2.9 g/dL (2.2-4.0); Glucose, Blood 103.0 mg/dL (70-99); Potassium, Blood 3.4 mmol/L (3.5-5.5); Sodium, Blood 147.0 mmol/L (136-145); Total Protein, Blood 7.8 g/dL (6.4-8.2)
== END ==
LOC: LAB SHORT 15:54 → LAB 15:54
DX: R11.10 Vomiting, unspecified (principal)
CPT/HCPCS: 80053; 85025

== ENCOUNTER → 2025-02-18 | Outpatient (CLI) | payer OTHER | LOC: LAB SHORT 16:34 → LAB 16:34 | DX: R82.998 Other abnormal findings in urine (principal) | CPT/HCPCS: 87086 ==

== ENCOUNTER 2025-02-26 07:09 | Emergency (ER) | payer OTHER ==
[~2025-02-26] VITALS: Ht 157.5 cm; Wt 49.9 kg
[2025-02-26] MEDS ORDERED: POTCHL20ER PO (07:53)
[2025-02-26 07:55] VITALS: BP 101/58
[2025-02-26] MEDS ORDERED: Metoclopramide HCl 5MG / ML 2ML Vial IV ONE (08:15)
[2025-02-26 08:22] LABS: BASOPHILS ABSOLUTE AUTO 0.03 K/mm3 (0.00-0.23); BASOPHILS PERCENT AUTO 1 % (0-2); EOSINOPHILS ABSOLUTE AUTO 0.04 K/mm3 (0.00-0.68); EOSINOPHILS PERCENT AUTO 1 % (0-6); Hematocrit 37.7 % (33.0-51.0); Hemoglobin 13.1 g/dL (11.5-16.0); IMMATURE GRAN ABSOLUTE AUTO 0.02 K/mm3 (0.00-0.10); IMMATURE GRAN PERCENT AUTO 0 % (0-1); LYMPHOCYTES ABSOLUTE AUTO 0.77 K/mm3 (0.84-5.20); LYMPHOCYTES PERCENT AUTO 13 % (21-46); MONOCYTES ABSOLUTE AUTO 0.47 K/mm3 (0.16-1.47); MONOCYTES PERCENT AUTO 8 % (4-13); Mean Corpuscular HGB Conc 34.7 g/dL (31.5-36.5); Mean Corpuscular Volume 92 fL (80-100); NEUTROPHILS ABSOLUTE AUTO 4.65 K/mm3 (1.96-9.15); NEUTROPHILS PERCENT AUTO 78 % (41-73); NRBC ABSOLUTE 0.00 K/mm3 (0.00-0.02); NRBC Auto 0.0 /100 WBC (0.0-0.2); Platelet Count 257 K/mm3 (150-400); RDW Coefficient Variation 12.7 % (11.7-14.2); RDW Standard Deviation 43.0 fL (35.1-46.3)
[2025-02-26 08:45] LABS: Alanine Aminotransfer (ALT/SGP 33.0 U/L (12-78); Albumin, Blood 4.6 g/dL (3.4-5.0); Albumin/Globulin Ratio 1.5 (0.8-1.8); Anion Gap 11.0 mmol/L (3-11); Aspartate Aminotrans (AST/SGOT 18.0 U/L (12-37); Bilirubin, Total 0.4 mg/dL (0.1-1.0); Blood Urea Nitrogen 14.0 mg/dL (8-24); CO2, Blood 22.0 mmol/L (21-32); Calcium, Blood 9.4 mg/dL (8.5-10.1); Chloride, Blood 107.0 mmol/L (98-108); Creatinine, Blood 0.73 mg/dL (0.40-1.00); Globulin, Blood 3.0 g/dL (2.2-4.0); Glucose, Blood 115.0 mg/dL (70-99); Magnesium, Blood 1.8 mg/dL (1.6-2.4); Potassium, Blood 3.6 mmol/L (3.5-5.5); Sodium, Blood 136.0 mmol/L (136-145); Total Protein, Blood 7.6 g/dL (6.4-8.2)
[2025-02-26] MEDS ORDERED: Atropine/Scopalam/Hyoscam/PB 5 ML UDC PO ONE (08:45)
[2025-02-26] MEDS ORDERED: Lidocaine 2% Viscous Soln 15 ML UDC PO ONE (08:45)
[2025-02-26 08:47] LABS: Source, Urine Clean Catch
[2025-02-26 08:55] LABS: Bilirubin, Urine Neg (Neg); Glucose Qualitative, Urine Neg (Neg); Ketones, Urine Neg (Neg); Leukocyte Esterase, Urine Neg (Neg); Protein, Urine Neg (Neg); Specific Gravity, Urine 1.015 (1.003-1.022); Urobilinogen, Urine NORM (Normal)
[2025-02-26 09:05] LABS: Color, Urine Yellow (P-Yellow)
[2025-02-26] MEDS ORDERED: NYSTRIT TOP (09:18)
== END 2025-02-26 09:24 | disposition home or self-care (01) ==
LOC: ER 07:09
DX: R10.13 Epigastric pain (principal); L30.4 Erythema intertrigo; F17.290 Nicotine dependence, other tobacco product, uncomplicated
CPT/HCPCS: 80053; 81003; 81025; 83690; 83735; 84702; 85025; 96374; 99284-25; A9270; J2765

== ENCOUNTER 2025-03-08 00:43 | Emergency (ER) | payer OTHER ==
[~2025-03-08] VITALS: Ht 157.5 cm; Wt 55.3 kg
[~2025-03-08 00:43] MED LIST changes: +NYSTRIT TOP; +POTCHL20ER PO
[2025-03-08] MEDS ORDERED: Lidocaine 2% Viscous Soln 15 ML UDC PO ONE (02:10)
[2025-03-08] MEDS ORDERED: SUCR1 PO (02:11)
[2025-03-08] MEDS ORDERED: Nexium40 MG PO (02:11)
[2025-03-08 02:30] VITALS: BP 111/75
== END 2025-03-08 02:33 | disposition home or self-care (01) ==
LOC: ER 00:43
DX: R10.12 Left upper quadrant pain (principal); J45.909 Unspecified asthma, uncomplicated; Z88.0 Allergy status to penicillin; Z88.2 Allergy status to sulfonamides; Z88.8 Allergy status to other drugs, medicaments and biological substances
CPT/HCPCS: 99283; A9270

== ENCOUNTER 2025-03-28 20:48 | Emergency (ER) | payer OTHER ==
[~2025-03-28] VITALS: Ht 157.5 cm; Wt 55.3 kg
[~2025-03-28 20:48] MED LIST changes: +Nexium40 MG PO; +SUCR1 PO
[2025-03-28 21:44] VITALS: BP 116/81
[2025-03-28 22:20] LABS: BASOPHILS ABSOLUTE AUTO 0.05 K/mm3 (0.00-0.23); BASOPHILS PERCENT AUTO 1 % (0-2); EOSINOPHILS ABSOLUTE AUTO 0.05 K/mm3 (0.00-0.68); EOSINOPHILS PERCENT AUTO 1 % (0-6); Hematocrit 33.6 % (33.0-51.0); Hemoglobin 11.7 g/dL (11.5-16.0); Mean Corpuscular HGB Conc 34.8 g/dL (31.5-36.5); Mean Corpuscular Volume 93 fL (80-100); NRBC ABSOLUTE 0.00 K/mm3 (0.00-0.02); NRBC Auto 0.0 /100 WBC (0.0-0.2); Platelet Count 242 K/mm3 (150-400); RDW Coefficient Variation 12.3 % (11.7-14.2); RDW Standard Deviation 42.2 fL (35.1-46.3)
[2025-03-28 22:21] LABS: IMMATURE GRAN ABSOLUTE AUTO 0.01 K/mm3 (0.00-0.10); IMMATURE GRAN PERCENT AUTO 0 % (0-1); LYMPHOCYTES ABSOLUTE AUTO 1.87 K/mm3 (0.84-5.20); LYMPHOCYTES PERCENT AUTO 46 % (21-46); MONOCYTES ABSOLUTE AUTO 0.42 K/mm3 (0.16-1.47); MONOCYTES PERCENT AUTO 10 % (4-13); NEUTROPHILS ABSOLUTE AUTO 1.67 K/mm3 (1.96-9.15); NEUTROPHILS PERCENT AUTO 41 % (41-73)
[2025-03-28 22:41] LABS: Alanine Aminotransfer (ALT/SGP 20 U/L (12-78); Albumin, Blood 4.0 g/dL (3.4-5.0); Albumin/Globulin Ratio 1.4 (0.8-1.8); Anion Gap 9 mmol/L (3-11); Aspartate Aminotrans (AST/SGOT 17 U/L (12-37); Beta HCG, Quantitative, Serum <1 mIU/mL (0-3); Bilirubin, Total 0.3 mg/dL (0.1-1.0); Blood Urea Nitrogen 13 mg/dL (8-24); CO2, Blood 25 mmol/L (21-32); Calcium, Blood 9.4 mg/dL (8.5-10.1); Chloride, Blood 109 mmol/L (98-108); Creatinine, Blood 0.70 mg/dL (0.40-1.00); Globulin, Blood 2.8 g/dL (2.2-4.0); Glucose, Blood 109 mg/dL (70-99); Potassium, Blood 3.7 mmol/L (3.5-5.5); Sodium, Blood 139 mmol/L (136-145); Total Protein, Blood 6.8 g/dL (6.4-8.2)
[2025-03-28 22:43] LABS: Source, Urine Clean Catch
[2025-03-28 22:45] LABS: Bilirubin, Urine Neg (Neg); Glucose Qualitative, Urine Neg (Neg); Ketones, Urine Neg (Neg); Leukocyte Esterase, Urine 1+ (Neg); Protein, Urine 1+ (Neg); Specific Gravity, Urine 1.025 (1.003-1.022); Urobilinogen, Urine NORM (Normal)
[2025-03-28 22:50] LABS: Color, Urine Yellow (P-Yellow); Red Blood Cells, Urine Not Seen /hpf (0-2)
[2025-03-29] MEDS ORDERED: Lidocaine 2% Viscous Soln 15 ML UDC PO ONE (00:25)
[2025-03-29] MEDS ORDERED: ONDA4 PO (00:37)
[2025-03-29] MEDS ORDERED: RX Prepack 2 Tabs Ondansetron ODT 4MG UD ONE (00:40)
== END 2025-03-29 01:10 | disposition home or self-care (01) ==
LOC: ER 20:48
PROVIDERS: Student in an Organized Health Care Education/Training Program
DX: K27.9 Peptic ulcer, site unspecified, unspecified as acute or chronic, without hemorrhage or perforation (principal); F17.290 Nicotine dependence, other tobacco product, uncomplicated; Z88.0 Allergy status to penicillin; Z88.2 Allergy status to sulfonamides; Z88.8 Allergy status to other drugs, medicaments and biological substances; Z79.899 Other long term (current) drug therapy
CPT/HCPCS: 80053; 81001; 84702; 85025; 87086; 93005; 93010; 99284-25; A9270